=== PATIENT | male | born 2000 | race African-American/Black ===

== ENCOUNTER 2023-02-28 07:14 | Emergency (ER) | payer OTHER, SELFPAY ==
[2023-02-28] VITALS (12 sets, daily range): BP systolic 118–136; BP diastolic 65–79; PULSE 99–103; RESP 16–20; TEMP 36.7; O2SAT 99–100
--- NOTE | ~2023-02-28 | XR_ITS ---
EXAMINATION: XR knee RT 3V DATE: 02/28/2023 08:39 INDICATION: Right knee pain TECHNIQUE: Three views of the right knee were obtained. COMPARISON: None. FINDINGS: Alignment is normal. No fracture or osteochondral lesion. Joint spaces are normal with no e rosions. No joint effusion/synovitis. Soft tissues are unremarkable. IMPRESSION: 1. No acute osseous abnormality. Reviewed, dictated and finalized at location A.
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
--- NOTE | ~2023-02-28 | XR_ITS ---
EXAMINATION: XR elbow LT min 3V DATE: 02/28/2023 08:39 INDICATION: Left elbow pain TECHNIQUE: Anteroposterior, oblique and lateral views of the left elbow were obtained. COMPARISON: None. FINDINGS: There is a displaced and overriding fracture of the distal radius resulting in nonstandard views of the elbow. No definite elbow fracture is identified. The soft tissue surrounding the elbow a re unremarkable. Soft tissues are unremarkable. IMPRESSION: 1. No definite elbow fracture identified. 2. Displaced and overriding fracture of the distal radius. Reviewed, dictated and finalized at location A.
--- NOTE | ~2023-02-28 | CT_ITS ---
EXAMINATION: CT brain wo con INDICATION: Head injury COMPARISON: None TECHNIQUE: Standard unenhanced head CT. The dose-length product (DLP) was 605.33 mGy-cm. The mA was a djusted according to patient size. Iterative reconstruction technique was employed. FINDINGS: There is no intracranial hemorrhage, acute infarction, or abnormal mass lesion. The ventric les are normal. There is no abnormal mass effect or midline shift. The foss-white matter differentiat ion is normal. The basal cisterns are patent. The orbits are normal. There is mild opacification of t he paranasal sinuses. IMPRESSION: 1. No acute intracranial abnormality. Reviewed, dictated and finalized at location A.
--- NOTE | ~2023-02-28 | XR_ITS ---
EXAMINATION: XR forearm LT 2V INDICATION: Left forearm pain, initial encounter TECHNIQUE: Two views of the left forearm are obtained. COMPARISON: None available FINDINGS: There is an acute, traumatic, closed, transverse fracture involving the distal third of the left radius. The distal fracture fragment is medially displaced and overriding by approximately 1.5 cm. There is an acute avulsion of the ulnar styloid. Soft tissue swelling surrounds the fractures. IMPRESSION: 1. Displaced and overriding transverse fracture of the distal radius. 2. Ulnar styloid avulsion. Reviewed, dictated and finalized at location A.
--- NOTE | ~2023-02-28 | XR_ITS ---
EXAMINATION: XR wrist LT 2V INDICATION: Left wrist pain TECHNIQUE: Two views of the left wrist are obtained. COMPARISON: None available FINDINGS: An ulnar styloid avulsion is noted. Bone alignment of the wrist is normal. There is no acut e osseous abnormality of the wrist. There is a displaced and overriding transverse fracture of the le ft radius described on the forearm radiographs. IMPRESSION: 1. No acute osseous abnormality of the wrist. 2. Ulnar styloid and distal radius fractures. Reviewed, dictated and finalized at location A.
--- NOTE | ~2023-02-28 | CT_ITS ---
EXAMINATION: CT facial & cervical spine wo DATE: 02/28/2023 08:56 INDICATION: Head injury TECHNIQUE: Computed tomography (CT) of the maxillofacial region and cervical spine was performed with out intravenous contrast. The dose-length product (DLP) was 431.70 mGy-cm. Automated exposure control and iterative reconstruction technique were employed. COMPARISON: None FINDINGS: MAXILLOFACIAL CT: There are acute, comminuted and displaced bilateral nasal bone fractures. There is minimal opacificat ion of the paranasal sinuses. No additional facial fracture is identified. The globes and orbits are intact. The left ostiomeatal unit is occluded. CERVICAL SPINE CT: Bone alignment is normal. There is no cervical spine fracture. The vertebral body heights and interve rtebral disc spaces are maintained. The odontoid process is intact. The prevertebral soft tissues are normal. There is fibrous union of the posterior C1 arch on the right. There is an acute fracture at the medial aspect of the left first rib adjacent to the T1 transverse process. IMPRESSION: 1. Comminuted and displaced bilateral nasal bone fractures. 2. No cervical spine fracture. 3. Nondisplaced fracture in the medial aspect of the left first rib. Reviewed, dictated and finalized at location A.
--- NOTE | ~2023-02-28 | XR_ITS ---
EXAMINATION: XR hand LT min 3V INDICATION: Left hand pain TECHNIQUE: Three views of the left hand are obtained. COMPARISON: None available FINDINGS: There is no acute fracture of the hand. An ulnar styloid avulsion is noted. Also noted is a displaced and overriding transverse fracture of the distal radius. IMPRESSION: 1. No acute osseous abnormality of the hand. 2. Distal radius and ulnar styloid fractures. Reviewed, dictated and finalized at location A.
[2023-02-28] MEDS: TETANUS,DIPHTHERIA,AC PERTUSSIS ADULT (0.5 ML) BOOSTRIX IM (07:58)
[2023-02-28 08:12] LABS: Basophils Absolute Auto 0.1 K/mm3 (0.0-0.1); Basophils Percent Auto 0.3 % (0.2-1.2); Hematocrit 42.5 % (42.0-52.0); Hemoglobin 13.9 g/dL (14.0-18.0); Immature Granulocyte Absolute 0.05 K/mm3 (0.00-0.031); Immature Granulocyte Percent A 0.3 % (0-0.5); Lymphocytes Absolute Auto 0.76 K/mm3 (0.9-3.2); Lymphocytes Percent Auto 4.5 % (18.3-44.2); Mean Corpuscular HGB Conc 32.7 g/dl (32-36); Mean Corpuscular Hemoglobin 29.5 pg (26-34); Mean Corpuscular Volume 90.2 fl (80-100); Mean Platelet Volume 10.3 fl (7.4-10.4); Monocytes Absolute Auto 1.3 K/mm3 (0.1-0.6); Monocytes Percent Auto 7.5 % (2.6-8.5); Neutrophils Absolute Auto 14.8 K/mm3 (1.3-6.7); Neutrophils Percent Auto 87.4 % (45.5-73.1); Platelet Count Result 247 k/mm3 (150-375); Red Blood Count 4.71 M/mm3 (4.6-6.20); Red Cell Distribution Width 13.6 % (11.5-14.5); White Blood Count 16.9 K/mm3 (4.5-10.0)
[2023-02-28 08:23] LABS: INR 1.1; Partial Thromboplastin Time 26.4 SECONDS (22.3-36.8)
[2023-02-28 08:24] LABS: Ethanol 189 mg/dL (<10)
[2023-02-28 08:25] LABS: Alanine Aminotransferase 69 U/L (6-50); Albumin Level 4.9 g/dL (3.5-5.1); Alkaline Phosphatase 70 U/L (38-126); Anion Gap 12 mmol/L (8-16); Aspartate Amino Transferase 155 U/L (17-59); Bilirubin,Total 0.5 mg/dL (0.2-1.3); Blood Urea Nitrogen 12 mg/dL (9-20); Calcium 9.1 mg/dL (8.4-10.2); Carbon Dioxide 28 mmol/L (22-30); Chloride 106 mmol/L (98-107); Estimated CRCL calculation 140 ml/min; Estimated Glomerular Filt Rate > 60; Glucose 93 mg/dL (65-110); Lipase 487 U/L (23-300); Potassium 3.5 mmol/L (3.4-5.0); Sodium 146 mmol/L (137-145)
[2023-02-28 09:11] LABS: Appearance Urine Clear (Clear); Bacteria Urine None Seen /hpf; Bilirubin Urine Negative (Negative); Blood Urine 3+ (Negative); Color Urine Yellow (Yellow); Glucose Urine UA Negative (Negative); Ketones Urine Trace mg/dL (Negative); Leukocyte Esterase Ur Negative LEU/UL (Negative); Nitrate Urine Negative (Negative); Non Pathogenic Casts 0-2; Protein Urine 2+ mg/dL (Negative); RBC Urine 21-50 /hpf (0-2); Specific Grav Ur 1.019 (1.001-1.035); Squamous Epithelial Cell Urine Occasional /hpf (Few); WBC Urine 0-5 /hpf; pH Urine 5.5 (5.0-9.0)
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
[2023-02-28 09:16] LABS: Add Urine Microscopic? YES
[2023-02-28 09:20] LABS: Amphetamine Screen Urine Negative (Negative); Barbiturate Screen Urine Negative (Negative); Benzodiazepines Screen Urine Negative (Negative); Cannabinoid Screen Urine Positive (Negative); Cocaine Screen Urine Negative (Negative); Methadone Screen Urine Negative (Negative); Opiate Screen Urine Negative (Negative); Phencyclidine Screen Urine Negative (Negative)
--- NOTE | 2023-02-28 12:12 | PC.NURSE ---
Azithromycin continued on transfer to [facility] ED.
== END 2023-02-28 12:13 | disposition short-term general hospital (02) ==
PROVIDERS: Emergency Provider Emergency Medicine
DX: S02.2XXA Fracture of nasal bones, initial encounter for closed fracture (principal); S52.592A Other fractures of lower end of left radius, initial encounter for closed fracture; S52.612A Displaced fracture of left ulna styloid process, initial encounter for closed fracture; S22.32XA Fracture of one rib, left side, initial encounter for closed fracture; S27.322A Contusion of lung, bilateral, initial encounter; S51.012A Laceration without foreign body of left elbow, initial encounter; S00.31XA Abrasion of nose, initial encounter; R91.8 Other nonspecific abnormal finding of lung field; Z23 Encounter for immunization; F17.290 Nicotine dependence, other tobacco product, uncomplicated; V47.9XXA Unspecified car occupant injured in collision with fixed or stationary object in traffic accident, initial encounter
CPT/HCPCS: 29125; 36415; 70450; 70486; 71260; 72125; 73080; 73090; 73100; 73130; 73562; 74177; 80053; 80307; 81001; 83690; 85025; 85610; 85730; 90471; 90715; 96365; 96367; 99285; J0456; J0696; Q9967